=== PATIENT | male | born 1975 | race Caucasian/White ===

== ENCOUNTER 2023-06-19 15:17 | Emergency (ER) | payer OTHER, SELFPAY ==
[2023-06-19 15:23] VITALS: BP 122/86; PULSE 88; RESP 18; TEMP 36.7; O2SAT 100; BMI 30.8
--- NOTE | 2023-06-19 15:33 | ED_ITS ---
HPI - Neck Pain/Injury General Chief Complaint: Neck Pain/Injury Stated Complaint: NECK PAIN Time Seen by Provider: 06/19/23 15:20 Source: patient Mode of arrival: walk-in History of Present Illness HPI Narrative: patient has been experiencing right posterolateral neck pain for a week or so. It developed one afternoon while he was working at a desk. No injury/trauma. The patient sleeps on his side and a few of the mornings he woke with worse pain. He has been taking ibuprofen without any improvement. Yesterday he golfed in a [employer] event. He swings right handed, which means the right side of the neck works to hold his head steady and the torso and upper extremities rotate to the left through his swing. About an hour of so after the event the patient had a dramatic increase in pain and stiffness in the right neck. he hol ds the neck sidebent to the left and slightly rotated to the left. no fever, chills, cough or cold symptoms. He gets tingling down the right arm and in the right hand with certain movements/position. Related Data Previous Rx's Medication Instructions Recorded methocarbamol 750 mg tablet 750 mg PO Q6H PRN pain #30 tabs 06/19/23 nabumetone 750 mg tablet 750 mg PO BID #14 tabs 06/19/23 Allergies Allergy/AdvReac Type Severity Reaction Status Date / Time No Known Drug Allergies Allergy Verified 06/19/23 15:32 Exam Narrative Exam Narrative: Nurses notes and vital signs reviewed and patient is not hypoxic. afebrile General: Well-appearing and in no apparent distress. Skin: Warm, dry, no pallor noted. No rash. Head: Normocephalic, atraumatic. Neck: Supple, no cervical lymphadenopathy. The patient holds his neck side bent to the left and rotated to the left. There is marked soft tissue tenderness along the posterior lateral aspect of the right neck. He has some spasming there with certain movements. It is very painful to rotate and side bent to the right. He feels better kidney and side bent and rotated to the left. No midline vertebral tenderness. Eye: Pupils are equal, round and EOMI. No scleral icterus. Cardiovascular: Regular Rate and Rhythm without murmur, gallop or rub. Respiratory: No accessory muscle use or respiratory distress. Lungs are clear to auscultation, no wheezing, rales or rhonchi Back: No midline thoracic or lumbar vertebral tenderness. Superior right trapezius tenderness Musculoskeletal: normal ROM right UE but with some pain down the right UE with certain movements/position - the neck feels better with the right arm elevated/abducted at the shoulder. Neurological: A&O x4. No cranial nerve dysfunction observed. No truncal ataxia. Moves all extremities. Sensation intact. Psychiatric: Cooperative and interactive. Normal mood and affect. Constitutional Vital Signs, click to edit/add: Last Vital Signs Temp 98.0 F 06/19/23 15:23 Pulse 88 06/19/23 15:23 Resp 18 06/19/23 15:23 BP 122/86 06/19/23 15:23 Pulse Ox 100 06/19/23 15:23 O2 Del Method Room Air 06/19/23 15:23 Course Vital Signs Vital signs: Vital Signs Temperature 98.0 F 06/19/23 15:23 Pulse Rate 88 06/19/23 15:23 Respiratory Rate 18 06/19/23 15:23 Blood Pressure 122/86 06/19/23 15:23 Pulse Oximetry 100 06/19/23 15:23 Oxygen Delivery Method Room Air 06/19/23 15:23 Temperature 98.0 F 06/19/23 15:23 Pulse Rate 88 06/19/23 15:23 Respiratory Rate 18 06/19/23 15:23 Blood Pressure 122/86 06/19/23 15:23 Pulse Oximetry 100 06/19/23 15:23 Oxygen Delivery Method Room Air 06/19/23 15:23 MDM - Neck Pain/Injury MDM Narrative Medical decision making narrative: patient has torticollis with spasming of the right neck, made worse by golfing yesterday. He was given IM Solumerol and Toradol in the ED along with oral Robaxin before discharge. Discharged home with prescriptions for relafen and robaxin - he is already taking tomorrow off work. Discharge Plan Discharge Chief Complaint: Neck Pain/Injury Clinical Impression: Torticollis Patient Disposition: Home, Self-Care Time of Disposition Decision: 15:40 Prescriptions / Home Meds: New nabumetone 750 mg tablet 750 mg PO BID Qty: 14 0RF methocarbamol 750 mg tablet 750 mg PO Q6H PRN (Reason: pain) Qty: 30 0RF Instructions: Spasmodic Torticollis (ED) Stand Alone Forms: Portal Instructions
--- NOTE | 2023-06-19 15:36 | PC.NURSE ---
right side neck that radiates to right arm, right hand grasp strong and assessment complete by DR at bedside
[2023-06-19] MEDS: KETOROLAC TROMETHAMINE 60 MG/2 ML VIAL IM (16:03)
[2023-06-19] MEDS: METHYLPREDNISOLONE SOD SUCC PF 125 MG/2 ML VIAL IM (16:03)
[2023-06-19] MEDS: METHOCARBAMOL 500 MG TABLET 1000 MG PO (16:04)
== END 2023-06-19 16:08 | disposition home or self-care (01) ==
LOC: ER 15:47
PROVIDERS: Emergency Provider Emergency Medicine; PCP Family Medicine
DX: M43.6 Torticollis (principal)
CPT/HCPCS: 96372; 99284; J2930